=== PATIENT | male | born 1965 | race Caucasian/White ===

== ENCOUNTER 2016-06-08 08:37 | Emergency (ER) | payer OTHER ==
[~2016-06-08] VITALS: Ht 170.2 cm; Wt 69.0 kg
[~2016-06-08 08:37] MED LIST: APIX5TAB PO; ASPI-496 PO; ATOR40TA78 PO; LISI5TAB7 PO; METO25TA91 PO; SPIR25TA PO
[2016-06-08] MEDS ORDERED: HYDROcodone/APAP 5/325 TABLET PO ONE (09:30)
[2016-06-08] MEDS ORDERED: HYDROcodone/APAP 5/325 TABLET ONE (09:57)
[2016-06-08] MEDS ORDERED: METO25TA91 PO (10:16)
[2016-06-08 12:52] VITALS: BP 120/87
== END 2016-06-08 12:54 | disposition home or self-care (01) ==
LOC: ED 11:26
DX: M54.16 Radiculopathy, lumbar region (principal); M54.5 Low back pain; F17.200 Nicotine dependence, unspecified, uncomplicated
CPT/HCPCS: 72148; 99284

== ENCOUNTER 2016-07-28 09:15 | Inpatient (IN) | payer OTHER ==
[~2016-07-28] VITALS: Ht 170.2 cm; Wt 69.7 kg
[2016-07-28 10:15] LABS: BLOOD UREA NITROGEN 12 mg/dL (7-18)
[2016-07-28 10:19] LABS: IS PT STATUS REG ER OR PRE ER? YES
[2016-07-28] MEDS ORDERED: HEPARIN 5,000 UNITS/ML, 1ML ONE (11:07)
[2016-07-28] MEDS ORDERED: HEPARIN 25,000 UNITS/500ML PMX 500 ML ONE (11:07)
[2016-07-28] MEDS ORDERED: HEPARIN 5,000 UNITS/ML, 1ML IV ONE (11:30)
[2016-07-28] MEDS ORDERED: HEPARIN 25,000 UNITS/500ML PMX 500 ML IV PRN (11:30)
[2016-07-28] MEDS ORDERED: HEPARIN 5,000 UNITS/ML, 1ML IV PRN (11:30)
[2016-07-28] MEDS ORDERED: ONDANSETRON 2MG/ML, 2ML IVPush PRN (12:30)
[2016-07-28] MEDS: FUROSEMIDE 40 MG/4 ML IV SCH (12:30)
[2016-07-28] MEDS ORDERED: HYDROcodone/APAP 5/325 TABLET PO PRN (12:30)
[2016-07-28] MEDS ORDERED: TEMAZEPAM 15 MG CAPSULE PO PRN (12:30)
[2016-07-28] MEDS ORDERED: morphine SULFATE 10 MG/ML, 1ML IVPush PRN (12:30)
[2016-07-28] MEDS ORDERED: ACETAMINOPHEN 325 MG TABLET PO PRN (12:30)
[2016-07-28] MEDS ORDERED: ENALAPRILAT 1.25 MG/ML, 2ML IVPush PRN (12:30)
[2016-07-28] MEDS ORDERED: NICOTINE 21 MG/24 HR PATCH.TD24 ONE (13:31)
[2016-07-28] MEDS ORDERED: ALBUTEROL/IPRATROPIUM 2.5MG/0.5MG, 3 ML ONE (13:36)
[2016-07-28] MEDS: NICOTINE 21 MG/24 HR PATCH.TD24 TD SCH (13:41)
[2016-07-28] MEDS: ALBUTEROL/IPRATROPIUM 2.5MG/0.5MG, 3 ML NPPB SCH ×3 (13:46→19:17)
[2016-07-28] MEDS: METOPROLOL SUCCINATE 25 MG TAB.ER.24H PO SCH (13:51)
[2016-07-28] MEDS: SPIRONOLACTONE 25 MG TABLET PO SCH (13:51)
[2016-07-28] MEDS: LISINOPRIL 5 MG TABLET PO SCH (13:52)
[2016-07-28 18:17] VITALS: BP 101/75
[2016-07-28 20:00] VITALS: BP 101/71
[2016-07-28 20:14] LABS: IS PT STATUS REG ER OR PRE ER? NO
[2016-07-28] MEDS: ATORVASTATIN 40 MG TABLET PO SCH (20:45)
[2016-07-28] MEDS: APIXABAN 5 MG TABLET PO SCH (20:45)
[2016-07-29 01:17] VITALS: BP 104/73
[2016-07-29 03:36] LABS: IS PT STATUS REG ER OR PRE ER? NO
[2016-07-29] MEDS: ASPIRIN 81 MG TABLET EC PO SCH (05:49)
[2016-07-29] MEDS: ALBUTEROL/IPRATROPIUM 2.5MG/0.5MG, 3 ML NPPB SCH ×4 (06:50→20:10)
[2016-07-29 07:10] VITALS: BP 110/75
[2016-07-29] MEDS: SPIRONOLACTONE 25 MG TABLET PO SCH (08:35)
[2016-07-29] MEDS: LISINOPRIL 5 MG TABLET PO SCH (08:35)
[2016-07-29] MEDS: FUROSEMIDE 40 MG/4 ML IV SCH (08:35)
[2016-07-29] MEDS: APIXABAN 5 MG TABLET PO SCH ×2 (08:36→20:39)
[2016-07-29] MEDS: METOPROLOL SUCCINATE 25 MG TAB.ER.24H PO SCH (08:36)
[2016-07-29] MEDS: NICOTINE 21 MG/24 HR PATCH.TD24 TD SCH (12:30)
[2016-07-29 14:20] VITALS: BP 120/68
[2016-07-29 19:08] VITALS: BP 95/62
[2016-07-29] MEDS: ATORVASTATIN 40 MG TABLET PO SCH (20:39)
[2016-07-30 02:00] VITALS: BP 95/66
[2016-07-30] MEDS: ASPIRIN 81 MG TABLET EC PO SCH (05:34)
[2016-07-30 06:08] LABS: BLOOD UREA NITROGEN 17 mg/dL (7-18)
[2016-07-30] MEDS: ALBUTEROL/IPRATROPIUM 2.5MG/0.5MG, 3 ML NPPB SCH (06:39)
[2016-07-30] MEDS ORDERED: ALBUTEROL/IPRATROPIUM 2.5MG/0.5MG, 3 ML NPPB PRN (08:00)
[2016-07-30 08:06] VITALS: BP 104/71
[2016-07-30] MEDS: LISINOPRIL 5 MG TABLET PO SCH (09:32)
[2016-07-30] MEDS: METOPROLOL SUCCINATE 25 MG TAB.ER.24H PO SCH (09:32)
[2016-07-30] MEDS: FUROSEMIDE 40 MG/4 ML IV SCH (09:32)
[2016-07-30] MEDS: APIXABAN 5 MG TABLET PO SCH ×2 (09:32→21:06)
[2016-07-30] MEDS: SPIRONOLACTONE 25 MG TABLET PO SCH (09:33)
[2016-07-30] MEDS: NICOTINE 21 MG/24 HR PATCH.TD24 TD SCH (12:10)
[2016-07-30 13:36] VITALS: BP 100/68
[2016-07-30 18:29] VITALS: BP 93/61
[2016-07-30 18:58] VITALS: BP 107/63
[2016-07-30] MEDS: ATORVASTATIN 40 MG TABLET PO SCH (21:06)
[2016-07-31 01:26] VITALS: BP 98/74
[2016-07-31] MEDS: ASPIRIN 81 MG TABLET EC PO SCH (05:28)
[2016-07-31 05:34] LABS: BLOOD UREA NITROGEN 20 mg/dL (7-18)
[2016-07-31 08:50] VITALS: BP 109/73
[2016-07-31] MEDS ORDERED: SPIRONOLACTONE 50 MG TABLET PO SCH (09:00)
[2016-07-31] MEDS: LISINOPRIL 5 MG TABLET PO SCH (09:31)
[2016-07-31] MEDS: METOPROLOL SUCCINATE 25 MG TAB.ER.24H PO SCH (09:31)
[2016-07-31] MEDS: APIXABAN 5 MG TABLET PO SCH (09:31)
[2016-07-31] MEDS: FUROSEMIDE 40 MG/4 ML IV SCH (09:32)
[2016-07-31] MEDS ORDERED: SPIR25TA PO (10:04)
[2016-07-31] MEDS ORDERED: APIX5TAB PO (10:04)
[2016-07-31] MEDS ORDERED: ATOR40TA78 PO (10:04)
[2016-07-31] MEDS ORDERED: FURO40TA6 PO (10:04)
[2016-07-31] MEDS ORDERED: LISI5TAB7 PO (10:04)
[2016-07-31] MEDS ORDERED: ASPI-621 PO (10:04)
[2016-07-31] MEDS ORDERED: NICO1PAT5 TD (10:04)
[2016-07-31] MEDS ORDERED: METO25TA91 PO (10:04)
== END 2016-07-31 13:30 | disposition home or self-care (01) | DRG 291 ==
LOC: ED 09:38 → EDIP 10:41 → 5SO 15:57 → DCLOUNGE 07-31 12:27
PROVIDERS: ADMIT Hospitalist; ATTEND Internal Medicine
DX: I11.0 Hypertensive heart disease with heart failure (principal); J96.00 Acute respiratory failure, unspecified whether with hypoxia or hypercapnia; R65.10 Systemic inflammatory response syndrome (SIRS) of non-infectious origin without acute organ dysfunction; I50.23 Acute on chronic systolic (congestive) heart failure; E78.5 Hyperlipidemia, unspecified; I25.10 Atherosclerotic heart disease of native coronary artery without angina pectoris; I25.5 Ischemic cardiomyopathy; J44.9 Chronic obstructive pulmonary disease, unspecified; Z72.0 Tobacco use; Z86.718 Personal history of other venous thrombosis and embolism; Z91.19 Patient's noncompliance with other medical treatment and regimen; Z95.5 Presence of coronary angioplasty implant and graft; Z88.6 Allergy status to analgesic agent; Z86.711 Personal history of pulmonary embolism
CPT/HCPCS: 36415; 71010; 80048; 81003; 82040; 83735; 83880; 84100; 84484; 85025; 85520; 93005; 94640; 96374; J1644; J1940; J7620

== ENCOUNTER 2017-01-02 21:46 | Emergency (ER) | payer OTHER ==
[~2017-01-02] VITALS: Ht 170.2 cm; Wt 77.9 kg
[~2017-01-02 21:46] MED LIST changes: +ASPI-621 PO; +CALCIUM PO; +FURO40TA6 PO; +NICO-487 TD
[2017-01-02 22:21] LABS: HEMATOCRIT 40.2 % (39.2-51.8); HEMOGLOBIN 13.3 g/dL (13.7-18.0); WHITE BLOOD COUNT 8.8 x10^3/uL (3.4-10)
[2017-01-02 22:32] LABS: BLOOD UREA NITROGEN 27 mg/dL (7-18)
[2017-01-02 22:38] LABS: IS PT STATUS REG ER OR PRE ER? YES
[2017-01-03 00:24] VITALS: BP 135/90
== END 2017-01-03 00:47 | disposition home or self-care (01) ==
LOC: ED 22:09
DX: R06.00 Dyspnea, unspecified (principal); Z76.0 Encounter for issue of repeat prescription; I50.31 Acute diastolic (congestive) heart failure; I11.0 Hypertensive heart disease with heart failure; F17.200 Nicotine dependence, unspecified, uncomplicated; I25.10 Atherosclerotic heart disease of native coronary artery without angina pectoris
CPT/HCPCS: 36415; 71010; 80048; 82040; 83880; 84484; 85025; 93005; 99285